=== PATIENT | female | born 1980 | race Caucasian/White ===

== ENCOUNTER 2017-04-03 08:47 | Emergency (ER) | payer MEDICAID ==
[2017-04-03] MEDS ORDERED: NS 1,000 ML IV ONE (08:56)
--- NOTE | 2017-04-03 08:58 | EDPHY ---
H & P Stated Complaint: fever, chills, aches Time Seen by Provider: 04/03/17 08:50 HPI/ROS: CHIEF COMPLAINT: Fever, cough, myalgias, sore throat HISTORY OF PRESENT ILLNESS: The patient presents to the ED via paramedics with complaints of fever, cough, myalgias and sore throat which have been progressive over the past several days. The patient does report a chronic cough secondary to smoking but it is acutely changed over the past 2 days. The patient does report generalized myalgias. She did not receive a flu shot this year. The patient does work at a halfway. The patient denies significant past medical history. REVIEW OF SYSTEMS: A comprehensive 10 point review of systems is otherwise negative aside from elements mentioned in the history of present illness. Source: Patient Exam Limitations: No limitations - Personal History LMP (Females 10-55): 15-21 Days Ago Current Tetanus/Diphtheria Vaccine: Yes Current Tetanus Diphtheria and Acellular Pertussis (TDAP): Yes - Medical/Surgical History Hx Asthma: No Hx Chronic Respiratory Disease: No Hx Diabetes: No Hx Cardiac Disease: No Hx Renal Disease: No Hx Cirrhosis: No Hx Alcoholism: No Hx HIV/AIDS: No Hx Splenectomy or Spleen Trauma: No Other PMH: denies - Social History Smoking Status: Current every day smoker - Physical Exam Exam: General Appearance: Alert, no distress Eyes: Pupils equal and round no pallor or injection ENT, Mouth: Mucous membranes moist, pharyngeal erythema present Respiratory: There are no retractions, lungs are clear to auscultation Cardiovascular: Regular rate and rhythm Gastrointestinal: Abdomen is soft and nontender, no masses, bowel sounds normal Neurological: A&O, normal motor function, normal sensory exam, normal cranial nerves Skin: Warm and dry, no rashes Musculoskeletal: Neck is supple nontender Extremities: symmetrical, full range of motion Constitutional: Initial Vital Signs Temperature (C) 37.3 C 04/03/17 08:55 Heart Rate 99 04/03/17 08:55 Respiratory Rate 19 04/03/17 08:55 Blood Pressure 128/83 H 04/03/17 08:55 O2 Sat (%) 94 04/03/17 08:55 O2 Delivery Mode Room Air Allergies/Adverse Reactions: acetaminophen [From Percocet] Allergy (Verified 04/03/17 08:54) cephalexin [From Keflex] Allergy (Verified 04/03/17 08:54) fentanyl Allergy (Verified 04/03/17 08:54) oxycodone [From Percocet] Allergy (Verified 04/03/17 08:54) Home Medications: Medication Instructions Recorded Azithromycin 250 mg PO DAILY #4 tablet 04/03/17 Medical Decision Making - Diagnostics Imaging Results: Imaging Impressions Chest X-Ray 04/03/17 08:56 Impression: Prominence of perihilar interstitial markings and peribronchial cuffing. Findings are nonspecific but can be seen with bronchitis, reactive airway disease, or viral process. ED Course/Re-evaluation: The patient presents to the emergency department with fever, chills, cough and sore throat. The patient's strep test is positive. Given her complaints of an acute cough, a chest x-ray was ordered which demonstrates no evidence of an obvious infiltrate by my interpretation. The patient has no meningeal symptoms. She is noted to have benign abdominal exam. The patient received azithromycin given her cephalosporin allergy. The patient did receive 1 L of IV fluid for symptoms consistent with mild dehydration. The patient will be discharged home with customary aftercare instructions. Differential Diagnosis: Differential diagnosis considered includes influenza, strep pharyngitis, pneumonia - Data Points Laboratory Results: Laboratory Results 04/03/17 09:10 04/03/17 09:10 04/03/17 04/03/17 04/03/17 09:10 09:10 09:00 WBC 13.87 10^3/uL H 10^3/uL (3.80-9.50) RBC 4.17 10^6/uL L 10^6/uL (4.18-5.33) Hgb 10.3 g/dL L g/dL (12.6-16.3) Hct 32.7 % L % (38.0-47.0) MCV 78.4 fL L fL (81.5-99.8) MCH 24.7 pg L pg (27.9-34.1) MCHC 31.5 g/dL L g/dL (32.4-36.7) RDW 15.9 % H % (11.5-15.2) Plt Count 181 10^3/uL 10^3/uL (150-400) MPV 10.6 fL fL (8.7-11.7) Neut % (Auto) 87.6 % H % (39.3-74.2) Lymph % (Auto) 6.4 % L % (15.0-45.0) [place] % (Auto) 5.0 % % (4.5-13.0) Eos % (Auto) 0.1 % L % (0.6-7.6) Baso % (Auto) 0.3 % % (0.3-1.7) Nucleat RBC Rel Count 0.0 % % (0.0-0.2) Absolute Neuts (auto) 12.15 10^3/uL H 10^3/uL (1.70-6.50) Absolute Lymphs (auto) 0.89 10^3/uL L 10^3/uL (1.00-3.00) Absolute Monos (auto) 0.70 10^3/uL 10^3/uL (0.30-0.80) Absolute Eos (auto) 0.01 10^3/uL L 10^3/uL (0.03-0.40) Absolute Basos (auto) 0.04 10^3/uL 10^3/uL (0.02-0.10) Absolute Nucleated RBC 0.00 10^3/uL 10^3/uL (0-0.01) Immature Gran % 0.6 % % (0.0-1.1) Immature Gran # 0.08 10^3/uL 10^3/uL (0.00-0.10) Sodium 132 mEq/L L mEq/L (134-144) Potassium 3.2 mEq/L L mEq/L (3.5-5.2) Chloride 104 mEq/L mEq/L (97-110) Carbon Dioxide 18 mEq/l L mEq/l (22-31) Anion Gap 10 mEq/L mEq/L (8-16) BUN 8 mg/dL mg/dL (7-23) Creatinine 0.7 mg/dL mg/dL (0.6-1.0) Estimated GFR > 60 Glucose 85 mg/dL mg/dL (70-100) Calcium 7.8 mg/dL L mg/dL (8.5-10.4) Influenza A & B (PCR) NEGATIVE FOR FLU (NEGATIVE) Group A Strep Screen 04/03/17 08:50 WBC RBC Hgb Hct MCV MCH MCHC RDW Plt Count MPV Neut % (Auto) Lymph % (Auto) [place] % (Auto) Eos % (Auto) Baso % (Auto) Nucleat RBC Rel Count Absolute Neuts (auto) Absolute Lymphs (auto) Absolute Monos (auto) Absolute Eos (auto) Absolute Basos (auto) Absolute Nucleated RBC Immature Gran % Immature Gran # Sodium Potassium Chloride Carbon Dioxide Anion Gap BUN Creatinine Estimated GFR Glucose Calcium Influenza A & B (PCR) Group A Strep Screen POSITIVE H (NEGATIVE) Medications Given: Discontinued Medications Acetaminophen (Tylenol) 1,000 mg PO EDNOW ONE Stop: 04/03/17 09:17 Last Admin: 04/03/17 09:20 Dose: 1,000 mg Azithromycin (Zithromax) 500 mg PO EDNOW ONE PRN Reason: Protocol Stop: 04/03/17 09:47 Last Admin: 04/03/17 09:57 Dose: 500 mg Sodium Chloride (Ns) 1,000 mls @ 0 mls/hr IV ONCE ONE; Wide Open PRN Reason: Protocol Stop: 04/03/17 08:57 Last Admin: 04/03/17 09:03 Dose: 1,000 mls Departure - Departure Disposition: Home, Routine, Self-Care Clinical Impression: Febrile illness, acute Pharyngitis Qualifiers: Pharyngitis/tonsillitis etiology: streptococcus Qualified Code(s): J02.0 - Streptococcal pharyngitis Condition: Good Instructions: Pharyngitis (ED) Additional Instructions: 1. Take antibiotics as directed 250 mg of azithromycin daily beginning tomorrow for 4 days. 2. Take Ibuprofen or Motrin 600 mg by mouth three times a day. 3. Please follow up with your primary care provider or on-call primary care physician you have been referred to for any unimproved symptoms. Referrals: Nathalia Clark MD [Medical Doctor] - As per Instructions
[2017-04-03] MEDS ORDERED: ACETAMINOPHEN 500 MG TAB PO ONE (09:16)
[2017-04-03 09:20] LABS: % IMMATURE GRANULYOCYTES 0.6 % (0.0-1.1); ABSOLUTE IMMATURE GRANULOCYTES 0.08 10^3/uL (0.00-0.10); ADD DIFF? NO; ATYPICAL LYMPHOCYTE FLAG 0 (0-99); FRAGMENT RBC FLAG 30 (0-99); HEMATOCRIT 32.7 % (38.0-47.0); HEMOGLOBIN 10.3 g/dL (12.6-16.3); LEFT SHIFT FLG 0 (0-99); MEAN CELL HEMOGLOBIN 24.7 pg (27.9-34.1); MEAN CELL HEMOGLOBIN CONCENTR. 31.5 g/dL (32.4-36.7); MEAN CELL VOLUME 78.4 fL (81.5-99.8); MEAN PLATELET VOLUME 10.6 fL (8.7-11.7); PLATELET COUNT 181 10^3/uL (150-400); RED BLOOD CELL COUNT 4.17 10^6/uL (4.18-5.33); RED CELL DISTRIBUTION WIDTH 15.9 % (11.5-15.2)
[2017-04-03 09:21] LABS: ADD MORPH? NO; ADD SCAN? NO; LIPEMIA HEMOLYSIS FLAG 80 (0-99); PLATELET CLUMPS FLAG 10 (0-99)
[2017-04-03 09:35] LABS: ANION GAP 10 mEq/L (8-16); CALCIUM 7.8 mg/dL (8.5-10.4); CARBON DIOXIDE 18 mEq/l (22-31); CHLORIDE 104 mEq/L (97-110); CREATININE 0.7 mg/dL (0.6-1.0); GLOMERULAR FILTRATION RATE > 60; GLUCOSE 85 mg/dL (70-100); POTASSIUM 3.2 mEq/L (3.5-5.2); SODIUM 132 mEq/L (134-144)
[2017-04-03] MEDS ORDERED: AZITHROMYCIN 250 MG TAB PO ONE (09:46)
[2017-04-03 10:50] VITALS: BP 119/76; PULSE 103; RESP 16; TEMP 98.4; O2SAT 97
== END 2017-04-03 10:48 | disposition home or self-care (01) ==
PROC: 3E0337Z Introduction of Electrolytic and Water Balance Substance into Peripheral Vein, Percutaneous Approach (ICD-10-PCS; principal; 2017-04-03)
DX: J02.0 Streptococcal pharyngitis (principal); F17.200 Nicotine dependence, unspecified, uncomplicated; E86.9 Volume depletion, unspecified